=== PATIENT | female | born 1945 | race Caucasian/White ===

== ENCOUNTER 2016-10-29 16:42 | Emergency (ER) | payer MEDICARE, MEDICAID ==
[~2016-10-29 16:42] MED LIST: Nitroglycerin 0.4 MG TAB 1 EACH ONE; Sodium Chloride 0.9% 1,000 ML BAG ONE
[2016-10-29] MEDS ORDERED: Nitroglycerin 0.4 MG TAB 1 EACH ONE (17:04)
--- NOTE | 2016-10-29 17:19 | RAD ---
FRONTAL RADIOGRAPH CHEST PORTABLE UPRIGHT 10/19/16 COMPARISON: 07/22/14 HISTORY: Chest pain. FINDINGS: The heart and mediastinal contours are stable. Lungs are clear. IMPRESSION: No acute findings. POS: [facility]
[2016-10-29 17:27] LABS: #Basophils 0.1 thou/uL (0.0-0.2); #Eosinphils 0.6 thou/uL (0.0-0.7); #Lymphocytes 3.1 thou/uL (1.20-3.40); #Monocytes 0.7 thou/uL (0.11-0.59); #Neutrophils 4.8 thou/uL (1.40-6.50); %Basophils 1.5 % (0.0-1.0); %Eosinophils 6.9 % (0.0-10.0); %Monocytes 7.3 % (0.0-10.0); %Neutrophils 51.4 % (42.0-75.0); ALT (SGPT) 30 U/L (0-55); AST (SGOT) 28 U/L (5-34); Albumin 3.9 g/dL (3.4-4.8); Alkaline Phosphatase 68 U/L (40-150); Anion Gap 16 mmol/L (10-20); BUN (Urea Nitrogen) 15 mg/dL (9.8-20.1); Bilirubin, Total 0.4 mg/dL (0.2-1.2); Calc. Creatinine Clearance 0 mL/min (70-130); Calcium 9.4 mg/dL (7.8-10.44); Carbon Dioxide 20 mmol/L (23-31); Chloride 110 mmol/L (98-107); Estimated GFR-MDRD 80; Globulin 3.3 g/dL (2.4-3.5); Glucose 160 mg/dL (80-115); Hemoglobin 13.2 g/dL (12.0-16.0); Lipase 47 U/L (8-78); Mean Corpuscular HGB CONC 34.4 g/dL (32.0-36.0); Mean Corpuscular Hemoglobin 30.8 pg (27.0-31.0); Mean Corpuscular Volume 89.6 fl (81.0-99.0); Mean Platelet Volume 7.7 fL (7.4-10.4); Platelet Count 323 thou/uL (130-400); Potassium 3.6 mmol/L (3.5-5.1); Protein, Total 7.2 g/dL (5.8-8.1); RBC Distribution Width 11.6 % (11.5-14.5); Red Blood Cell (RBC) Count 4.29 mill/uL (4.20-5.40); Sodium 142 mmol/L (136-145); White Blood Cell (WBC) Count 9.3 thou/uL (4.8-10.8)
[2016-10-29 17:34] LABS: CKMB 0.9 ng/mL (0-6.6); Troponin I Less than 0.010 ng/mL (< 0.028)
== END 2016-10-29 18:10 | disposition left against medical advice (07) ==
LOC: MADERS 16:42
DX: R07.9 Chest pain, unspecified (principal); I10 Essential (primary) hypertension; E11.9 Type 2 diabetes mellitus without complications; Z79.899 Other long term (current) drug therapy
CPT/HCPCS: 36415; 71010; 80053; 82553; 83690; 83880; 84484; 85025; 85379; 93005; 96360; J7050

== ENCOUNTER 2016-11-16 19:08 | Emergency (ER) | payer MEDICARE, OTHER ==
[2016-11-16] MEDS ORDERED: Naproxen 500 MG TAB ONE (21:37)
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
== END 2016-11-16 21:43 | disposition home or self-care (01) ==
LOC: MADERS 19:08
DX: S80.02XA Contusion of left knee, initial encounter (principal); S70.12XA Contusion of left thigh, initial encounter; S70.02XA Contusion of left hip, initial encounter; I10 Essential (primary) hypertension; W18.30XA Fall on same level, unspecified, initial encounter

== ENCOUNTER 2017-06-04 19:24 | Emergency (ER) | payer MEDICARE, MEDICAID ==
[2017-06-04] MEDS ORDERED: Lidocaine-Prilocaine 2.5% Cream 5 GM TUBE ONE (20:09)
== END 2017-06-04 20:17 | disposition home or self-care (01) ==
LOC: MADERS 19:24
DX: L98.9 Disorder of the skin and subcutaneous tissue, unspecified (principal); I10 Essential (primary) hypertension
CPT/HCPCS: 99282

== ENCOUNTER 2017-09-01 16:24 | Emergency (ER) | payer MEDICARE, MEDICAID ==
[~2017-09-01 16:24] MED LIST changes: +Donnatal Elixir 16.2 MG/5 ML UDCUP ONE; -Nitroglycerin 0.4 MG TAB 1 EACH ONE; -Sodium Chloride 0.9% 1,000 ML BAG ONE
[2017-09-01] MEDS ORDERED: Mag-Al Plus 1200 MG/1200 MG/120 MG/30 ML UDCUP ONE (17:13)
[2017-09-01] MEDS ORDERED: Lidocaine Viscous Sol 2% 15 ml UD Cup ONE (17:13)
[2017-09-01] MEDS ORDERED: Donnatal Elixir 16.2 MG/5 ML UDCUP ONE (17:13)
[2017-09-01] MEDS ORDERED: Aspirin 325 MG TAB ONE (17:14)
== END 2017-09-01 18:35 | disposition home or self-care (01) ==
LOC: MADERS 16:24
DX: K29.00 Acute gastritis without bleeding (principal); I10 Essential (primary) hypertension
CPT/HCPCS: 99283

== ENCOUNTER → 2017-11-11 | Emergency (ER) | payer MEDICARE, MEDICAID ==
[~2017-11-11] MED LIST changes: +Aspirin 325 MG TAB ONE; +Lidocaine Viscous Sol 2% 15 ml UD Cup ONE; +Mag-Al Plus 1200 MG/1200 MG/120 MG/30 ML UDCUP ONE
[2017-11-11 21:11] LABS: Prothrombin Time 13.2 SEC (12.0-14.7)
[2017-11-11 21:21] LABS: Bilirubin Negative (Negative); Blood, Urine Negative (Negative); Clarity Clear (Clear); Glucose, Urine (Dipstick) Negative (Negative); Leukocyte Negative (Negative); Nitrite Negative (Negative); Protein, Urine (Dipstick) Negative (Neg-Trace); Urobilinogen 0.2 mg/dL (0.2-1.0); pH, Urine 5.5 (5.0-9.0)
[2017-11-11 21:21] LABS: #Basophils 0.1 thou/uL (0.0-0.2); #Eosinphils 0.2 thou/uL (0.0-0.7); #Lymphocytes 2.8 thou/uL (1.20-3.40); #Monocytes 0.9 thou/uL (0.11-0.59); #Neutrophils 5.5 thou/uL (1.40-6.50); %Basophils 1.5 % (0.0-1.0); %Eosinophils 2.6 % (0.0-10.0); %Lymphocytes 29.2 % (21.0-51.0); %Monocytes 9.1 % (0.0-10.0); %Neutrophils 57.7 % (42.0-75.0); Hemoglobin 12.1 g/dL (12.0-16.0); Mean Corpuscular Hemoglobin 31.2 pg (27.0-31.0); Mean Corpuscular Volume 91.9 fl (81.0-99.0); Mean Platelet Volume 7.5 fL (7.4-10.4); Platelet Count 311 thou/uL (130-400); RBC Distribution Width 11.4 % (11.5-14.5); Red Blood Cell (RBC) Count 3.86 mill/uL (4.20-5.40); White Blood Cell (WBC) Count 9.4 thou/uL (4.8-10.8)
[2017-11-11 21:22] LABS: ALT (SGPT) 14 U/L (8-55); AST (SGOT) 20 U/L (5-34); Albumin 3.7 g/dL (3.4-4.8); Alkaline Phosphatase 71 U/L (40-150); Anion Gap 15 mmol/L (10-20); BUN (Urea Nitrogen) 20 mg/dL (9.8-20.1); Bilirubin, Total 0.3 mg/dL (0.2-1.2); CK (CPK) 35 U/L (29-168); Calc. Creatinine Clearance 0 mL/min (70-130); Calcium 9.3 mg/dL (7.8-10.44); Carbon Dioxide 22 mmol/L (23-31); Chloride 108 mmol/L (98-107); Estimated GFR-MDRD 81; Globulin 3.8 g/dL (2.4-3.5); Glucose 106 mg/dL (80-115); Potassium 3.6 mmol/L (3.5-5.1); Protein, Total 7.5 g/dL (6.0-8.3); Sodium 141 mmol/L (136-145)
[2017-11-11 21:23] LABS: Specific Gravity, Urine 1.007 (1.002-1.036)
[2017-11-11 21:24] LABS: Bacteria/HPF None Seen HPF (None Seen); RBC/HPF 0-3 HPF (0-3); Squamous Epithelial 0-3 HPF (0-3); WBC/HPF 0-3 HPF (0-3)
[2017-11-11 21:31] LABS: CKMB 0.6 ng/mL (0-6.6); Troponin I Less than 0.010 ng/mL (< 0.028)
--- NOTE | 2017-11-11 21:57 | RAD ---
CHEST AP CHEST X-RAY 11/11/17 HISTORY: Epigastric pain. COMPARISON: 01/06/17 FINDINGS: The cardiac silhouette is magnified by projection but is at the upper limits of normal to borderline enlarged. Pulmonary vasculature is within normal limits. Linear densities are seen in the right upper lung zone which may be related to mild atelectasis and/or scarring. There is symmetric biapical pleu ral thickening present. Lungs are otherwise clear. Osteopenia is present. There has been no significa nt interval change from prior exam. IMPRESSION: 1. Mild linear scarring versus atelectasis in the right upper lung zone. There is otherwise no a cute cardiopulmonary process. 2. Upper limits normal to borderline cardiomegaly. 3. Osteopenia. POS: [facility]
== END ==
LOC: MADERS 20:28
DX: K30 Functional dyspepsia (principal); I10 Essential (primary) hypertension; Z79.82 Long term (current) use of aspirin; Z79.899 Other long term (current) drug therapy
CPT/HCPCS: 36415; 71045; 80053; 81001; 82550; 82553; 83735; 83880; 84484; 85025; 85610; 85730; 87077; 87086; 93005; 94760

== ENCOUNTER 2018-02-02 22:14 | Emergency (ER) | payer MEDICARE, MEDICAID ==
[2018-02-02] MEDS ORDERED: diphenhydrAMINE 50 MG/ML VIAL ONE (22:33)
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
== END 2018-02-02 23:25 | disposition home or self-care (01) ==
LOC: MADERS 22:14
DX: S46.911A Strain of unspecified muscle, fascia and tendon at shoulder and upper arm level, right arm, initial encounter (principal); S63.501A Unspecified sprain of right wrist, initial encounter; Z79.82 Long term (current) use of aspirin; Z79.899 Other long term (current) drug therapy; K21.9 Gastro-esophageal reflux disease without esophagitis; I10 Essential (primary) hypertension; W07.XXXA Fall from chair, initial encounter
CPT/HCPCS: J1200

== ENCOUNTER 2018-05-06 17:03 | Emergency (ER) | payer MEDICARE, MEDICAID | END 2018-05-06 17:35 | disposition home or self-care (01) | LOC: MADERS 17:03 | DX: R22.0 Localized swelling, mass and lump, head (principal); E78.5 Hyperlipidemia, unspecified; K21.9 Gastro-esophageal reflux disease without esophagitis; I10 Essential (primary) hypertension; Z79.82 Long term (current) use of aspirin; Z79.899 Other long term (current) drug therapy | CPT/HCPCS: 99281 ==

== ENCOUNTER 2018-06-15 18:39 | Emergency (ER) | payer MEDICARE, OTHER | END 2018-06-15 19:39 | disposition home or self-care (01) | LOC: MADERS 18:39 | DX: S01.111A Laceration without foreign body of right eyelid and periocular area, initial encounter (principal); M19.90 Unspecified osteoarthritis, unspecified site; K21.9 Gastro-esophageal reflux disease without esophagitis; E78.5 Hyperlipidemia, unspecified; I10 Essential (primary) hypertension; Z79.82 Long term (current) use of aspirin; Z79.899 Other long term (current) drug therapy; X58.XXXA Exposure to other specified factors, initial encounter | CPT/HCPCS: 12011 ==

== ENCOUNTER 2019-06-05 15:51 | Emergency (ER) | payer MEDICARE, MEDICAID ==
--- NOTE | 2019-06-05 16:50 | RAD ---
XR Chest Pa Lat STANDARD HISTORY: Chest pain COMPARISON: 11/11/2017 FINDINGS: The heart size is normal. The lungs are well expanded without focal areas of consolidation, pneumothorax or pleural effusions. There are degenerative changes in the spine. IMPRESSION: No radiographic evidence of acute cardiopulmonary process.
== END 2019-06-05 17:10 | disposition home or self-care (01) ==
LOC: MADERS 15:51
DX: S29.011A Strain of muscle and tendon of front wall of thorax, initial encounter (principal); E78.5 Hyperlipidemia, unspecified; E78.00 Pure hypercholesterolemia, unspecified; K21.9 Gastro-esophageal reflux disease without esophagitis; I10 Essential (primary) hypertension; Z79.82 Long term (current) use of aspirin; Z79.899 Other long term (current) drug therapy; V49.9XXA Car occupant (driver) (passenger) injured in unspecified traffic accident, initial encounter
CPT/HCPCS: 71046; 93005

== ENCOUNTER 2019-06-22 21:39 | Emergency (ER) | payer MEDICARE, MEDICAID | END 2019-06-22 22:25 | disposition home or self-care (01) | LOC: MADERS 21:39 | DX: R58 Hemorrhage, not elsewhere classified (principal); T45.515A Adverse effect of anticoagulants, initial encounter; E78.5 Hyperlipidemia, unspecified; E78.00 Pure hypercholesterolemia, unspecified; K21.9 Gastro-esophageal reflux disease without esophagitis; I10 Essential (primary) hypertension; Z79.01 Long term (current) use of anticoagulants; Z95.5 Presence of coronary angioplasty implant and graft; Z79.899 Other long term (current) drug therapy | CPT/HCPCS: 99283 ==

== ENCOUNTER 2019-08-13 20:11 | Emergency (ER) | payer MEDICARE, MEDICAID ==
[2019-08-13 21:34] LABS: #Basophils 0.1 thou/uL (0.0-0.2); #Eosinphils 0.2 thou/uL (0.0-0.7); #Lymphocytes 2.9 thou/uL (1.20-3.40); #Monocytes 0.9 thou/uL (0.11-0.59); #Neutrophils 7.9 thou/uL (1.40-6.50); %Basophils 1.2 % (0.0-1.0); %Lymphocytes 24.1 % (21.0-51.0); %Monocytes 7.1 % (0.0-10.0); %Neutrophils 65.7 % (42.0-75.0); Hemoglobin 12.3 g/dL (12.0-16.0); Mean Corpuscular HGB CONC 31.2 g/dL (32.0-36.0); Mean Corpuscular Hemoglobin 29.3 pg (27.0-31.0); Mean Corpuscular Volume 93.9 fL (78.0-98.0); Mean Platelet Volume 7.4 fL (7.4-10.4); Platelet Count 374 thou/uL (130-400); RBC Distribution Width 12.5 % (11.5-14.5); Red Blood Cell (RBC) Count 4.18 mill/uL (4.20-5.40); White Blood Cell (WBC) Count 12.1 thou/uL (4.8-10.8)
[2019-08-13 21:49] LABS: ALT (SGPT) 13 U/L (8-55); AST (SGOT) 15 U/L (5-34); Alkaline Phosphatase 71 U/L (40-110); Anion Gap 14 mmol/L (10-20); BUN (Urea Nitrogen) 16 mg/dL (9.8-20.1); Bilirubin, Total 0.2 mg/dL (0.2-1.2); Calc. Creatinine Clearance 0 mL/min (70-130); Calcium 9.2 mg/dL (7.8-10.44); Carbon Dioxide 24 mmol/L (23-31); Chloride 107 mmol/L (98-107); Estimated GFR-MDRD 75; Globulin 3.5 g/dL (2.4-3.5); Glucose 98 mg/dL (83-110); Potassium 3.7 mmol/L (3.5-5.1); Protein, Total 7.5 g/dL (6.0-8.3); Sodium 141 mmol/L (136-145)
[2019-08-13] MEDS ORDERED: Fluorescein Opthalmic Strip ONE (21:52)
[2019-08-13] MEDS ORDERED: Tetracaine 0.5% OPHTH SOLN/PF 4 ML BOT ONE (21:53)
[2019-08-13] MEDS ORDERED: predniSONE 20 MG TAB ONE (22:17)
== END 2019-08-13 22:25 | disposition home or self-care (01) ==
LOC: MADERS 20:11
DX: R51 Headache (principal); E78.00 Pure hypercholesterolemia, unspecified; E78.5 Hyperlipidemia, unspecified; K21.9 Gastro-esophageal reflux disease without esophagitis; I10 Essential (primary) hypertension; M19.90 Unspecified osteoarthritis, unspecified site; Z95.5 Presence of coronary angioplasty implant and graft; Z79.01 Long term (current) use of anticoagulants; Z79.82 Long term (current) use of aspirin; Z79.899 Other long term (current) drug therapy
CPT/HCPCS: 36415; 80053; 85025; 86140; 99283; J7512

== ENCOUNTER 2019-12-29 19:09 | Emergency (ER) | payer MEDICARE, MEDICAID ==
[2019-12-29] MEDS ORDERED: Aspirin Chewable 81 MG TAB ONE (19:38)
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
[2019-12-29 19:52] LABS: #Basophils 0.1 thou/uL (0.0-0.2); #Eosinphils 0.2 thou/uL (0.0-0.7); #Lymphocytes 3.1 thou/uL (1.20-3.40); #Monocytes 0.8 thou/uL (0.11-0.59); #Neutrophils 5.1 thou/uL (1.40-6.50); %Basophils 1.4 % (0.0-1.0); %Eosinophils 2.4 % (0.0-10.0); %Lymphocytes 33.5 % (21.0-51.0); %Monocytes 8.8 % (0.0-10.0); %Neutrophils 53.9 % (42.0-75.0); Mean Corpuscular Hemoglobin 29.2 pg (27.0-31.0); Mean Corpuscular Volume 88.5 fL (78.0-98.0); Platelet Count 394 thou/uL (130-400); RBC Distribution Width 12.2 % (11.5-14.5); Red Blood Cell (RBC) Count 4.11 mill/uL (4.20-5.40); White Blood Cell (WBC) Count 9.4 thou/uL (4.8-10.8)
[2019-12-29 20:05] LABS: ALT (SGPT) 22 U/L (8-55); AST (SGOT) 28 U/L (5-34); Alkaline Phosphatase 72 U/L (40-110); Anion Gap 15 mmol/L (10-20); BUN (Urea Nitrogen) 19 mg/dL (9.8-20.1); Bilirubin, Total 0.2 mg/dL (0.2-1.2); Calc. Creatinine Clearance 0 mL/min (70-130); Carbon Dioxide 22 mmol/L (23-31); Chloride 106 mmol/L (98-107); Estimated GFR-MDRD 72; Globulin 3.6 g/dL (2.4-3.5); Glucose 99 mg/dL (83-110); Protein, Total 7.6 g/dL (6.0-8.3); Sodium 139 mmol/L (136-145)
== END 2019-12-29 21:00 | disposition left against medical advice (07) ==
LOC: MADERS 19:09
DX: I20.0 Unstable angina (principal); I10 Essential (primary) hypertension; M19.90 Unspecified osteoarthritis, unspecified site; E78.5 Hyperlipidemia, unspecified; E78.00 Pure hypercholesterolemia, unspecified; K21.9 Gastro-esophageal reflux disease without esophagitis; Z79.899 Other long term (current) drug therapy; Z79.01 Long term (current) use of anticoagulants; Z79.82 Long term (current) use of aspirin
CPT/HCPCS: 36415; 71045; 80053; 83880; 84484; 85025; 93005

== ENCOUNTER 2020-05-17 17:32 | Emergency (ER) | payer MEDICARE, OTHER ==
[2020-05-17] MEDS ORDERED: Doxycycline 100 MG CAP ONE (18:01)
[2020-05-17] MEDS ORDERED: D5 1/2 NS w/20 mEq KCL 0 ML ONE (18:01)
== END 2020-05-17 18:00 | disposition home or self-care (01) ==
LOC: MADERS 17:32
DX: L03.115 Cellulitis of right lower limb (principal); E78.5 Hyperlipidemia, unspecified; I10 Essential (primary) hypertension; M19.90 Unspecified osteoarthritis, unspecified site; E78.00 Pure hypercholesterolemia, unspecified; K21.9 Gastro-esophageal reflux disease without esophagitis; Z79.82 Long term (current) use of aspirin; Z79.899 Other long term (current) drug therapy; Z79.01 Long term (current) use of anticoagulants
CPT/HCPCS: 99283; J3480

== ENCOUNTER 2020-06-28 15:11 | Emergency (ER) | payer MEDICARE, OTHER ==
--- NOTE | 2020-06-28 16:10 | RAD ---
XR Shoulder Lt 3 View STANDARD HISTORY: Left shoulder pain FINDINGS: No fracture or dislocation is identified. There are degenerative changes in the acromioclavicular tarsha nt and the visualized portions of the cervical spine.
== END 2020-06-28 16:45 | disposition home or self-care (01) ==
LOC: MADERS 15:12
DX: M25.512 Pain in left shoulder (principal); I10 Essential (primary) hypertension; E78.5 Hyperlipidemia, unspecified; E78.00 Pure hypercholesterolemia, unspecified; M19.90 Unspecified osteoarthritis, unspecified site; K21.9 Gastro-esophageal reflux disease without esophagitis; Z79.899 Other long term (current) drug therapy; Z79.82 Long term (current) use of aspirin

== ENCOUNTER 2021-03-24 21:59 | Emergency (ER) | payer MEDICARE, MEDICAID, OTHER ==
[2021-03-24] MEDS ORDERED: Ketorolac Tromethamine 30 MG/ML VIAL ONE (22:18)
== END 2021-03-24 22:49 | disposition home or self-care (01) ==
LOC: MADERS 21:59
DX: M25.511 Pain in right shoulder (principal); K21.9 Gastro-esophageal reflux disease without esophagitis; I10 Essential (primary) hypertension; E78.5 Hyperlipidemia, unspecified; M19.90 Unspecified osteoarthritis, unspecified site; E78.00 Pure hypercholesterolemia, unspecified
CPT/HCPCS: 96372; J1885

== ENCOUNTER 2021-05-28 16:33 | Outpatient (CLI) | payer MEDICARE, MEDICAID ==
[2021-05-28 17:18] LABS: Bilirubin Negative (Negative); Blood, Urine Negative (Negative); Clarity Clear (Clear); Glucose, Urine (Dipstick) Negative (Negative); Ketone, Urine Negative (Negative); Leukocyte Negative (Negative); Nitrite Negative (Negative); Protein, Urine (Dipstick) Negative (Neg-Trace); Specific Gravity, Urine 1.015 (1.005-1.030); Urobilinogen 0.2 mg/dL (Less than 2)
[2021-05-28 17:31] LABS: ALT (SGPT) 15 U/L (8-55); AST (SGOT) 17 U/L (5-34); Albumin 3.8 g/dL (3.4-4.8); Alkaline Phosphatase 57 U/L (40-110); Anion Gap 12 mmol/L (10-20); BUN (Urea Nitrogen) 13 mg/dL (9.8-20.1); Bilirubin, Total 0.4 mg/dL (0.2-1.2); Calc. Creatinine Clearance 0 mL/min (70-130); Calcium 9.5 mg/dL (7.8-10.44); Carbon Dioxide 26 mmol/L (23-31); Cardiac Risk 2.4 (Less than 4.5); Chloride 107 mmol/L (98-107); Cholesterol 127 mg/dl (< 200 Desired); Globulin 3.1 g/dL (2.4-3.5); Glucose 96 mg/dL (83-110); HDL Cholesterol 53 mg/dL (>60 Neg Risk); LDL Cholesterol, Calculated 60 mg/dL; Potassium 3.9 mmol/L (3.5-5.1); Protein, Total 6.9 g/dL (5.8-8.1); Sodium 141 mmol/L (136-145); Triglycerides 68 mg/dL (Less than 150)
[2021-05-28 17:38] LABS: Bacteria/HPF Rare-Few HPF (None Seen); RBC/HPF None Seen HPF (0-3); Squamous Epithelial 0-3 HPF (0-3); WBC/HPF None Seen HPF (0-3)
[2021-05-28 17:44] LABS: Eosinophils 5 % (0-10); Hemoglobin 12.8 g/dL (12.0-16.0); Lymphocytes 18 % (21-51); MDiff Complete? YES; Mean Corpuscular HGB CONC 31.2 g/dL (32.0-36.0); Mean Corpuscular Volume 93.1 fL (78.0-98.0); Mean Platelet Volume 6.6 fL (7.4-10.4); Monocytes 4 % (0-10); Neutrophil 59 % (42-75); Platelet Count 310 thou/uL (130-400); Platelet Morphology Comment Appears Adequate; RBC Distribution Width 12.9 % (11.5-14.5); RBC Morphology Normal; Reactive Lymphocytes 14 % (0-10); Red Blood Cell (RBC) Count 4.39 mill/uL (4.20-5.40); White Blood Cell (WBC) Count 8.5 thou/uL (4.8-10.8)
== END 2021-05-28 16:34 | disposition home or self-care (01) ==
LOC: MADLAB 16:33
DX: E78.5 Hyperlipidemia, unspecified (principal); I10 Essential (primary) hypertension
CPT/HCPCS: 80053; 80061; 81001; 84443; 85025

== ENCOUNTER 2021-06-11 10:22 | Emergency (ER) | payer MEDICARE, MEDICAID ==
[2021-06-11] MEDS ORDERED: metroNIDAZOLE 250 MG TAB ONE (10:48)
[2021-06-11] MEDS ORDERED: Sodium Chloride 0.9% 1,000 ML ONE (10:48)
[2021-06-11] MEDS ORDERED: Ciprofloxacin 500 MG TAB ONE (10:48)
[2021-06-11 10:55] LABS: #Basophils 0.1 thou/uL (0.0-0.2); #Eosinphils 0.2 thou/uL (0.0-0.7); #Lymphocytes 1.9 thou/uL (1.20-3.40); #Monocytes 0.6 thou/uL (0.11-0.59); #Neutrophils 4.4 thou/uL (1.40-6.50); %Basophils 1.4 % (0.0-1.0); %Eosinophils 3.3 % (0.0-10.0); %Lymphocytes 25.7 % (21.0-51.0); %Monocytes 7.9 % (0.0-10.0); %Neutrophils 61.6 % (42.0-75.0); Hemoglobin 12.2 g/dL (12.0-16.0); Mean Corpuscular HGB CONC 32.3 g/dL (32.0-36.0); Mean Corpuscular Hemoglobin 29.3 pg (27.0-31.0); Mean Corpuscular Volume 90.8 fL (78.0-98.0); Mean Platelet Volume 7.7 fL (7.4-10.4); Platelet Count 307 thou/uL (130-400); RBC Distribution Width 12.3 % (11.5-14.5); Red Blood Cell (RBC) Count 4.18 mill/uL (4.20-5.40); White Blood Cell (WBC) Count 7.2 thou/uL (4.8-10.8)
[2021-06-11 11:03] LABS: Base Excess-Venous 1.6 mmol/L (-2.0 to 3.0); Bicarbonate (HCO3v) 25.7 mmol/L (22.0-28.0); CO2 Tension (PvCO2) 37.6 mmHg (42.0-51.0); Calcium, Ionized 1.22 mmol/L (1.15-1.33); Chloride 106 mmol/L (98-107); Hemoglobin - Calc 12.5 g/dL (12.0-16.0); Potassium 3.8 mmol/L (3.5-5.1); Sodium 140 mmol/L (138-145); T. Carbon Dioxide 26.8 mmol/L (22.0-28.0); vO2 Saturation-calc 99.5 % (60.0-85.0)
[2021-06-11 11:11] LABS: ALT (SGPT) 18 U/L (8-55); AST (SGOT) 18 U/L (5-34); Albumin 3.6 g/dL (3.4-4.8); Alkaline Phosphatase 60 U/L (40-110); Anion Gap 14 mmol/L (10-20); BUN (Urea Nitrogen) 22 mg/dL (9.8-20.1); Bilirubin, Total 0.7 mg/dL (0.2-1.2); Calc. Creatinine Clearance 0 mL/min (70-130); Calcium 9.5 mg/dL (7.8-10.44); Carbon Dioxide 23 mmol/L (23-31); Chloride 106 mmol/L (98-107); Globulin 3.4 g/dL (2.4-3.5); Glucose 105 mg/dL (83-110); Magnesium 1.9 mg/dL (1.6-2.6); Potassium 3.8 mmol/L (3.5-5.1); Sodium 139 mmol/L (136-145)
[2021-06-11 11:50] LABS: Bilirubin Negative (Negative); Blood, Urine Negative (Negative); Clarity Clear (Clear); Glucose, Urine (Dipstick) Negative (Negative); Ketone, Urine Negative (Negative); Leukocyte Trace (Negative); Nitrite Negative (Negative); Protein, Urine (Dipstick) Negative (Neg-Trace); Urobilinogen 0.2 mg/dL (Less than 2); pH, Urine 5.5 (5.0-9.0)
[2021-06-11 11:54] LABS: Bacteria/HPF Rare-Few HPF (None Seen); Mucous/LPF 2+ LPF (<2+); RBC/HPF None Seen HPF (0-3); WBC/HPF 0-3 HPF (0-3)
[2021-06-11 12:00] LABS: SARS-CoV-2 NAA Rapid Test Not Detected (NotDetected)
[2021-06-11] MEDS ORDERED: Mag-Al Plus 1200 MG/1200 MG/120 MG/30 ML UDCUP ONE (12:12)
[2021-06-11] MEDS ORDERED: Lidocaine Viscous Sol 2% 15 ml UD Cup ONE (12:12)
[2021-06-11 13:51] LABS: Troponin I Less than 0.010 ng/mL (< 0.028)
== END 2021-06-11 14:24 | disposition home or self-care (01) ==
LOC: MADERS 10:22
DX: R06.00 Dyspnea, unspecified (principal); R10.13 Epigastric pain; K21.9 Gastro-esophageal reflux disease without esophagitis; E78.5 Hyperlipidemia, unspecified; I10 Essential (primary) hypertension; E78.00 Pure hypercholesterolemia, unspecified; Z20.822 Contact with and (suspected) exposure to COVID-19; Z79.01 Long term (current) use of anticoagulants; Z79.899 Other long term (current) drug therapy; Z79.82 Long term (current) use of aspirin
CPT/HCPCS: 71045; 82330; 82435; 82803; 83690; 83735; 83880; 84132; 84295; 84484 ×2; 85014; 93005; 99285; U0002; 36415; 80053; 81003; 81015; 84443; 85025; J7050